=== PATIENT | male | born 2005 | race Caucasian/White ===

== ENCOUNTER 2025-03-28 06:18 | Emergency (ER) | payer BC, SELFPAY ==
[2025-03-28] MEDS ORDERED: Ondansetron PF 4 MG/2 ML Vial ONE (06:47)
[2025-03-28] MEDS ORDERED: Ketorolac Tromethamine 30 MG (1 mL) VIAL ONE (06:47)
[2025-03-28 06:58] LABS: #Basophils Less than 0.03 10x3/uL (0.0-0.2); #Eosinophils 0.09 10x3/uL (0.0-0.5); #Monocytes 0.57 10x3/uL (0.0-1.1); #Neutrophils 8.66 10x3/uL (1.5-8.4); %Basophils 0.2 % (0.0-2.0); %Eosinophils 0.9 % (0.0-6.0); %Lymphocytes 8.9 % (18.0-47.0); %Monocytes 5.6 % (0.0-10.0); %Neutrophils 84.2 % (40.0-75.0); Hematocrit 49.5 % (38.8-50.0); Hemoglobin 17.5 g/dL (13.5-17.5); Mean Corpuscular Hemoglobin 29.0 pg (27.0-33.0); Mean Corpuscular Volume 82.1 fL (81.2-95.1); Platelet Count 294 10x3/uL (150-450); Red Blood Cell (RBC) Count 6.03 10x6/uL (4.32-5.72); White Blood Cell (WBC) Count 10.27 10x3/uL (3.5-10.5)
[2025-03-28 07:24] LABS: ALT (SGPT) 60 U/L (Less than 45); AST (SGOT) 45 U/L (11-34); Albumin 5.6 g/dL (3.1-4.5); Alkaline Phosphatase 87 U/L (40-110); Anion Gap 16 mmol/L (10-20); BUN (Urea Nitrogen) 12 mg/dL (8.9-20.6); Bilirubin, Total 1.0 mg/dL (0.3-1.2); Calc. Creatinine Clearance 0 mL/min (70-130); Calcium 10.6 mg/dL (7.8-10.44); Carbon Dioxide 23 mmol/L (22-29); Chloride 104 mmol/L (98-107); Globulin 3.5 g/dL (2.4-3.5); Glucose 112 mg/dL (70-105); Lipase 14 U/L (8-78); Potassium 4.0 mmol/L (3.5-5.1); Sodium 139 mmol/L (136-145)
== END 2025-03-28 08:40 | disposition home or self-care (01) ==
LOC: CSHERS 06:18
DX: U07.1 COVID-19 (principal); K52.9 Noninfective gastroenteritis and colitis, unspecified
CPT/HCPCS: 36415; 80053; 83690; 85025; 96361; 96374; 96375; J1885; J2405